=== PATIENT | female | born 1990 | race African-American/Black ===

== ENCOUNTER 2020-05-12 18:20 | Emergency (ER) | payer BC | END 2020-05-12 20:14 | disposition home or self-care (01) | LOC: CSHERS 18:20 | DX: O99.891 Other specified diseases and conditions complicating pregnancy (principal); R10.11 Right upper quadrant pain; Z3A.19 19 weeks gestation of pregnancy | CPT/HCPCS: 76815 ==

== ENCOUNTER 2021-01-29 10:45 | Emergency (ER) | payer BC | END 2021-01-29 12:28 | disposition home or self-care (01) | LOC: CSHERS 10:45 | DX: H81.399 Other peripheral vertigo, unspecified ear (principal); B34.9 Viral infection, unspecified | CPT/HCPCS: 99282 ==

== ENCOUNTER 2021-04-05 03:22 | Emergency (ER) | payer BC ==
[2021-04-05 04:01] LABS: BHCG - Serum Negative (NEGATIVE); Pregs Control Background? CLEAR/WHITE (CLR/WHITE); Pregs Control Bar Appear? YES (CONTROL BAR)
[2021-04-05 04:03] LABS: #Eosinphils 0.2 10x3/uL (0.0-0.5); #Monocytes 0.7 10x3/uL (0.0-1.1); #Neutrophils 4.6 10x3/uL (1.5-8.4); %Basophils 0.3 % (0.0-2.0); %Eosinophils 2.4 % (0.0-6.0); %Lymphocytes 36.4 % (18.0-47.0); %Monocytes 7.7 % (0.0-10.0); %Neutrophils 52.9 % (40.0-75.0); Hemoglobin 11.9 g/dL (12.0-15.5); Mean Corpuscular HGB CONC 34.1 g/dL (32.0-36.0); Mean Corpuscular Hemoglobin 28.8 pg (27.0-33.0); Mean Corpuscular Volume 84.5 fl (81.6-98.3); Platelet Count 213 10x3/uL (150-450); RBC Distribution Width 12.9 % (11.5-14.5); Red Blood Cell (RBC) Count 4.13 10x6/uL (3.90-5.03); White Blood Cell (WBC) Count 8.7 10x3/uL (3.5-10.5)
[2021-04-05 04:14] LABS: ALT (SGPT) 13 U/L (8-55); AST (SGOT) 15 U/L (5-34); Alkaline Phosphatase 48 U/L (40-110); Anion Gap 15 mmol/L (10-20); BUN (Urea Nitrogen) 12 mg/dL (7.0-18.7); Bilirubin, Total 0.4 mg/dL (0.2-1.2); Calc. Creatinine Clearance 0 mL/min (70-130); Carbon Dioxide 20 mmol/L (22-29); Chloride 108 mmol/L (98-107); Globulin 3.1 g/dL (2.4-3.5); Glucose 116 mg/dL (70-105); Potassium 3.4 mmol/L (3.5-5.1); Protein, Total 7.1 g/dL (6.0-8.3); Sodium 140 mmol/L (136-145)
== END 2021-04-05 05:24 | disposition home or self-care (01) ==
LOC: CSHERS 03:22
DX: R06.00 Dyspnea, unspecified (principal)
CPT/HCPCS: 71045; 71275; 80053; 84703; 85025; 85379; 93005

== ENCOUNTER 2021-11-02 05:59 | Emergency (ER) | payer BC ==
[2021-11-02] MEDS ORDERED: Lidocaine 1% (PF) 30 ML VIAL ONE (06:13)
[2021-11-02] MEDS ORDERED: Triple Antibiotic Oint 1 GM Packet ONE (06:15)
== END 2021-11-02 06:28 | disposition home or self-care (01) ==
LOC: CSHERS 05:59
DX: S61.216A Laceration without foreign body of right little finger without damage to nail, initial encounter (principal); W25.XXXA Contact with sharp glass, initial encounter; Y99.0 Civilian activity done for income or pay
CPT/HCPCS: 12001; J2001

== ENCOUNTER 2021-12-12 15:57 | Emergency (ER) | payer BC ==
[~2021-12-12 15:57] MED LIST: Iopamidol 370 76% 100 ML VIAL ONE
[2021-12-12 16:41] LABS: #Basophils 0.1 10x3/uL (0.0-0.2); #Eosinphils 0.2 10x3/uL (0.0-0.5); #Monocytes 0.7 10x3/uL (0.0-1.1); #Neutrophils 7.2 10x3/uL (1.5-8.4); %Basophils 0.5 % (0.0-2.0); %Eosinophils 1.6 % (0.0-6.0); %Lymphocytes 26.1 % (18.0-47.0); %Monocytes 5.9 % (0.0-10.0); %Neutrophils 65.7 % (40.0-75.0); Hemoglobin 12.6 g/dL (12.0-15.5); Mean Corpuscular HGB CONC 35.9 g/dL (32.0-36.0); Mean Corpuscular Hemoglobin 29.2 pg (27.0-33.0); Mean Corpuscular Volume 81.4 fl (81.6-98.3); Mean Platelet Volume 11.4 fl (7.4-10.4); Platelet Count 228 10x3/uL (150-450); RBC Distribution Width 12.7 % (11.5-14.5); Red Blood Cell (RBC) Count 4.31 10x6/uL (3.90-5.03)
[2021-12-12 17:01] LABS: BHCG - Serum Negative (NEGATIVE); Pregs Control Background? CLEAR/WHITE (CLR/WHITE); Pregs Control Bar Appear? YES (CONTROL BAR)
[2021-12-12 17:04] LABS: ALT (SGPT) 10 U/L (8-55); AST (SGOT) 14 U/L (5-34); Albumin 4.1 g/dL (3.5-5.0); Alkaline Phosphatase 37 U/L (40-110); Anion Gap 12 mmol/L (10-20); BUN (Urea Nitrogen) 11 mg/dL (7.0-18.7); Bilirubin, Total 0.3 mg/dL (0.2-1.2); CK (CPK) 83 U/L (29-168); Calc. Creatinine Clearance 0 mL/min (70-130); Calcium 9.3 mg/dL (7.8-10.44); Carbon Dioxide 23 mmol/L (22-29); Chloride 108 mmol/L (98-107); Estimated GFR 102; Globulin 2.6 g/dL (2.4-3.5); Glucose 93 mg/dL (70-105); Magnesium 1.9 mg/dL (1.6-2.6); Potassium 4.3 mmol/L (3.5-5.1); Protein, Total 6.7 g/dL (6.0-8.3); Sodium 139 mmol/L (136-145)
[2021-12-12 19:23] LABS: Bilirubin Neg (Negative); Blood, Urine Negative (Negative); Clarity Clear (Clear); Glucose, Urine (Dipstick) Normal (Negative); Ketone, Urine Negative (Negative); Leukocyte 25 (Negative); Nitrite Negative (Negative); Protein, Urine (Dipstick) Negative (Neg-Trace); Specific Gravity, Urine 1.005 (1.005-1.030); Urobilinogen Normal mg/dL (Less than 2)
[2021-12-12 19:35] LABS: Bacteria/HPF Rare-Few HPF (None Seen); RBC/HPF 0-3 HPF (0-3); Squamous Epithelial 0-3 HPF (0-3)
== END 2021-12-12 20:05 | disposition home or self-care (01) ==
LOC: CSHERS 15:57
DX: R53.1 Weakness (principal)
CPT/HCPCS: 36415; 36416; 71045; 71275; 80053; 81003; 81015; 82550; 83605; 83735; 83880; 84443; 84484; 84703; 85025; 85379; 93005; 96360; 96361; Q9967

== ENCOUNTER 2023-03-09 19:23 | Emergency (ER) | payer BC ==
[2023-03-09 20:17] LABS: SARS-CoV-2 NAA Rapid Test Not Detected (NotDetected)
== END 2023-03-09 21:10 | disposition home or self-care (01) ==
LOC: CSHERS 19:23
DX: J20.9 Acute bronchitis, unspecified (principal)
CPT/HCPCS: 71045

== ENCOUNTER 2025-01-08 18:44 | Emergency (ER) | payer BC, OTHER ==
[2025-01-08 19:28] LABS: #Basophils Less than 0.03 10x3/uL (0.0-0.2); #Eosinophils 0.13 10x3/uL (0.0-0.5); #Monocytes 0.71 10x3/uL (0.0-1.1); #Neutrophils 9.76 10x3/uL (1.5-8.4); %Basophils 0.1 % (0.0-2.0); %Eosinophils 1.0 % (0.0-6.0); %Lymphocytes 16.8 % (18.0-47.0); %Monocytes 5.5 % (0.0-10.0); %Neutrophils 75.8 % (40.0-75.0); Hematocrit 31.3 % (34.9-44.5); Hemoglobin 11.1 g/dL (12.0-15.5); Mean Corpuscular Hemoglobin 29.1 pg (27.0-33.0); Mean Corpuscular Volume 82.2 fL (81.6-98.3); Platelet Count 206 10x3/uL (150-450); Red Blood Cell (RBC) Count 3.81 10x6/uL (3.90-5.03); White Blood Cell (WBC) Count 12.88 10x3/uL (3.5-10.5)
[2025-01-08 19:40] LABS: Glucose, Urine (Dipstick) Normal (Negative); Leukocyte Negative (Negative); Protein, Urine (Dipstick) Negative (Neg-Trace); Specific Gravity, Urine 1.015 (1.005-1.030)
[2025-01-08 19:46] LABS: ALT (SGPT) 14 U/L (Less than 34); AST (SGOT) 18 U/L (11-34); Albumin 3.4 g/dL (3.1-4.5); Alkaline Phosphatase 34 U/L (40-110); Anion Gap 11 mmol/L (10-20); BUN (Urea Nitrogen) 6 mg/dL (7.0-18.7); Bilirubin, Total 0.2 mg/dL (0.3-1.2); Calc. Creatinine Clearance 0 mL/min (70-130); Calcium 8.8 mg/dL (7.8-10.44); Carbon Dioxide 22 mmol/L (22-29); Chloride 107 mmol/L (98-107); Globulin 3.1 g/dL (2.4-3.5); Glucose 105 mg/dL (70-105); Potassium 3.5 mmol/L (3.5-5.1); Sodium 136 mmol/L (136-145)
[2025-01-08 20:06] LABS: Troponin I Less than 0.010 ng/mL (< 0.028)
[2025-01-08 20:15] LABS: Bacteria/HPF 2+ HPF (None Seen); CAUTI Indications for Culture Pelvic or flank pain; RBC/HPF 0-3 HPF (0-3); WBC/HPF 0-3 HPF (0-3)
[2025-01-08 20:19] LABS: Mucous/LPF 1+ LPF (<2+)
[2025-01-08 20:20] LABS: Urine Culture Reflex No No
== END 2025-01-08 21:45 | disposition home or self-care (01) ==
LOC: CSHERS 18:44
DX: O23.92 Unspecified genitourinary tract infection in pregnancy, second trimester (principal); R82.71 Bacteriuria; O99.891 Other specified diseases and conditions complicating pregnancy; R06.00 Dyspnea, unspecified; Z3A.15 15 weeks gestation of pregnancy
CPT/HCPCS: 36415; 71045; 76856; 80053; 81001; 83880; 84484; 84702; 85025; 86900; 86901; 87428; 93005

== ENCOUNTER 2025-01-11 13:45 | Emergency (ER) | payer OTHER ==
[2025-01-11] MEDS ORDERED: Milk Of Magnesia 30 ML UDCUP ONE (14:25)
[2025-01-11] MEDS ORDERED: Lidocaine Viscous Sol 2% 15 ml UD Cup ONE (14:25)
[2025-01-11 14:50] LABS: #Basophils Less than 0.03 10x3/uL (0.0-0.2); #Eosinophils 0.13 10x3/uL (0.0-0.5); #Monocytes 0.48 10x3/uL (0.0-1.1); #Neutrophils 9.60 10x3/uL (1.5-8.4); %Basophils 0.2 % (0.0-2.0); %Eosinophils 1.1 % (0.0-6.0); %Lymphocytes 14.8 % (18.0-47.0); %Monocytes 4.0 % (0.0-10.0); %Neutrophils 79.1 % (40.0-75.0); Hematocrit 30.0 % (34.9-44.5); Hemoglobin 10.5 g/dL (12.0-15.5); Mean Corpuscular Hemoglobin 28.9 pg (27.0-33.0); Mean Corpuscular Volume 82.6 fL (81.6-98.3); Platelet Count 195 10x3/uL (150-450); Red Blood Cell (RBC) Count 3.63 10x6/uL (3.90-5.03); White Blood Cell (WBC) Count 12.12 10x3/uL (3.5-10.5)
[2025-01-11 15:17] LABS: ALT (SGPT) 14 U/L (Less than 34); AST (SGOT) 18 U/L (11-34); Albumin 3.3 g/dL (3.1-4.5); Alkaline Phosphatase 33 U/L (40-110); Anion Gap 8 mmol/L (10-20); BUN (Urea Nitrogen) 6 mg/dL (7.0-18.7); Bilirubin, Total 0.3 mg/dL (0.3-1.2); Calc. Creatinine Clearance 0 mL/min (70-130); Calcium 9.0 mg/dL (7.8-10.44); Carbon Dioxide 23 mmol/L (22-29); Chloride 106 mmol/L (98-107); Globulin 3.2 g/dL (2.4-3.5); Glucose 106 mg/dL (70-105); Potassium 3.4 mmol/L (3.5-5.1); Sodium 134 mmol/L (136-145)
== END 2025-01-11 15:19 | disposition home or self-care (01) ==
LOC: CSHERS 13:45
DX: O99.612 Diseases of the digestive system complicating pregnancy, second trimester (principal); K92.0 Hematemesis; Z3A.16 16 weeks gestation of pregnancy
CPT/HCPCS: 36415; 80053; 85025; 99285; Q0162